=== PATIENT | female | born 1995 | race Caucasian/White ===

== ENCOUNTER 2017-10-21 08:16 | Emergency (ER) | payer SELFPAY ==
[2017-10-21] MEDS ORDERED: KETOROLAC TROMETHAMINE INJ/PF 30 MG/1 ML SDV IM ONE (09:17)
[2017-10-21] MEDS ORDERED: LIDOCAINE 2% VISCOUS SOLN 20 ML UDCUP PO ONE (09:17)
[2017-10-21] MEDS ORDERED: LIDOCAINE 1% INJ-PF (10 MG/ML) 30 ML SDV INJ ONE (09:18)
[2017-10-21] MEDS ORDERED: AZITHROMYCIN 250 MG TABLET PO ONE (09:18)
[2017-10-21] MEDS ORDERED: CEFTRIAXONE INJ 250 MG VIAL IM ONE (09:18)
--- NOTE | 2017-10-21 09:27 | ER Document Report ---
ED General - General Chief Complaint: Toothache Stated Complaint: TOOTHACHE Time Seen by Provider: 10/21/17 09:02 TRAVEL OUTSIDE OF THE [place] IN LAST 30 DAYS: No - HPI Notes: Patient is a 22-year-old female who presents to the ED complaining of acute on chronic right lower dental pain #32, right lower jaw swelling, temporal headache from her jaw pain per patient, white/clear vaginal discharge, urinary frequency. Patient states that her dental pain has been ongoing for the last couple days and her discharge over the last 1 day. Patient states that she is still able to eat and drink, but does have a decreased p.o. intake. She is having normal bowel movements. Patient states her lower back aches which makes her believe that she may have an infection. Denies any drug allergies. Has had chlamydia in the past. Last sexual intercourse was 2 days ago. Denies any headache, fever, neck pain/stiffness, URI, sore throat, chest pain, palpitations , syncope, cough, shortness of breath, wheeze, dyspnea, abdominal pain, nausea/ vomiting/diarrhea, urinary retention, dysuria, hematuria, vaginal bleeding, pelvic pain, loss of control of bowel or bladder, numbness/tingling, saddle anesthesia, muscle paralysis/weakness, or rash. - Related Data Allergies/Adverse Reactions: No Known Allergies Allergy (Verified 10/21/17 08:16) Past Medical History - Social History Smoking Status: Never Smoker Chew tobacco use (# tins/day): No Frequency of alcohol use: None Drug Abuse: None Family History: Reviewed & Not Pertinent Patient has suicidal ideation: No Patient has homicidal ideation: No Renal/ Medical History: Denies: Hx Peritoneal Dialysis - Immunizations Immunizations up to date: Yes Hx Diphtheria, Pertussis, Tetanus Vaccination: Yes - 11/2011 Review of Systems - Review of Systems -: Yes All other systems reviewed and negative Physical Exam - Vital signs Vitals: Temp Pulse Resp BP Pulse Ox 100.5 F H 120 H 14 147/87 H 98 10/21/17 08:27 10/21/17 08:27 10/21/17 08:27 10/21/17 08:27 10/21/17 08:27 - Notes Notes: PHYSICAL EXAMINATION: GENERAL: Well-appearing, well-nourished and in no acute distress. A&Ox4. answers questions appropriately. Vitals: HR 104 HEAD: Atraumatic, normocephalic. EYES: Pupils equal round and reactive to light, extraocular movements intact, sclera anicteric, conjunctiva are normal. ENT: EAC clear b/l. TM's intact b/l without erythema, fluid, or perforation. Nares patent and without discharge. oropharynx clear without exudates. No tonsilar hypertrophy or erythema. Moist mucous membranes. No sinus tenderness. Uvula midline. No palatine shift. No tongue protrusion. No respiratory compromise. Mouth: Poor dentition throughout. + severe decay and mild gingivitis. No obvious abscess or discharge noted. + rt lower jaw swelling. + tenderness to tooth #32. NECK: Normal range of motion, supple without lymphadenopathy. No rigidity/ meningismus. Kernig/brudzinski neg. LUNGS: Breath sounds clear to auscultation bilaterally and equal. No wheezes rales or rhonchi. HEART: Regular rate and rhythm without murmurs, rubs, gallops. Abd: Soft, non-tender, no distension. + bowel sounds present. No CVA tenderness. No pelvic tenderness on exam. : deferred, pt declined. NEUROLOGICAL: Cranial nerves grossly intact. Normal speech, normal gait. Normal sensory, motor exams PSYCH: Normal mood, normal affect. SKIN: Warm, Dry, normal turgor, no rashes or lesions noted. Course - Re-evaluation Re-evalutation: 10/21/17 10:25 Patient is a well-hydrated, 22-year-old female who presents to the ED with fever (currently afebrile) and dental pain, suspect infection. Vitals are acceptable w/o any significant tachycardia, tachypnea, or hypoxia. PE is otherwise unremarkable. Abd is soft and non-tender throughout. No I&D, labs, or imaging warranted at this time based on H&P. Viscous lidocaine dispensed today and toradol given. Wet mount, UA, HCG unremarkable. Chlam/erika pending. Zithromax and rocephin given today. Pt declined pelvic. I will send her home with a prescription for cleocin. No other labs or imaging warranted at this time based on H&P. Low suspicion for any meningitis, sepsis, peritonsillar/ pharyngeal abscess, respiratory compromise, Elijah's, temporal arteritis, acute appendicitis, bowel obstruction, acute cholecystitis, acute cholangitis, perforated diverticulitis, incarcerated hernia, pancreatitis, perforated ulcer, peritonitis, sepsis, pelvic inflammatory disease, ectopic , tubo- ovarian abscess, ovarian torsion, or other emergent systemic condition at this time. Patient is aware this condition can change from initial presentation and she needs to monitor symptoms closely. Conservative measures otherwise for symptoms. Call to schedule an appointment with a dentist for further evaluation and management. Recheck with your PCM/OBGYN this week as well. Return to the ED with any worsening/concerning symptoms otherwise as reviewed in discharge. Patient is in agreement. - Vital Signs Vital signs: Temp Pulse Resp BP Pulse Ox 98.7 F 96 16 125/75 80 L 10/21/17 10:12 10/21/17 10:12 10/21/17 08:48 10/21/17 10:12 10/21/17 10:12 Discharge - Discharge Clinical Impression: Pain, dental, Vaginal discharge Fever Qualifiers: Fever type: unspecified Qualified Code(s): R50.9 - Fever, unspecified Condition: Stable Disposition: HOME, SELF-CARE Instructions: Clindamycin ([facility]), Toothache ([facility]) Additional Instructions: [place] and floss twice daily Maintain fluid intake Take antibiotics as directed Mouthwash, salt water gargles, peroxide rinse as needed Tylenol/ibuprofen as needed Maintain fluid intake Proper hygenic technique Keep the skin clean Safe sexual practices with condoms everytime Check in with the health department this week for further testing if warranted Your chlamydia/Ghon test are pending and you will be notified if positive results; you may call in 1 day for the results as well Return immediately if symptoms worsen Recheck with PCM/OFFICE TECHNOLOGIST this week Call today/tomorrow and schedule an appointment with your dentist for further evaluation Return to the ED with any worsening symptoms and/or development of fever, headache, facial swelling, swelling of lips/tongue/throat, trouble swallowing, drooling, hoarseness, neck pain/stiffness, chest pain, palpitations, syncope, shortness of breath, trouble breathing, abdominal pain, n/v/d, numbness/tingling , or other worsening symptoms that are concerning to you. Prescriptions: Clindamycin HCl [Cleocin 300 mg Capsule] 300 mg PO TID #30 capsule Naproxen 500 mg PO BID PRN #30 tablet PRN Reason: Forms: Elevated Blood Pressure Referrals: TANO REYES MD [ACTIVE STAFF] - 10/23/17 [facility] [Provider Group] - Follow up in 3-5 days
[2017-10-21 09:56] LABS: APPEARANCE,URINE CLEAR; BILIRUBIN,URINE NEGATIVE (NEGATIVE); COLOR,URINE STRAW; GLUCOSE, URINE NEGATIVE (NEGATIVE); KETONES,URINE NEGATIVE (NEGATIVE); LEUKOCYTE ESTERASE,URINE NEGATIVE (NEGATIVE); NITRITE,URINE NEGATIVE (NEGATIVE); PROTEIN,URINE NEGATIVE (NEGATIVE); URINE SPECIFIC GRAVITY 1.004; UROBILINOGEN,URINE NEGATIVE mg/dL (<2.0)
[2017-10-21 10:01] LABS: BACTERIA (WET MOUNT) 3+ BACTERIA SEEN; T.VAGINALIS (WET MOUNT) NO TRICHOMONAS SEEN; WBCS (WET MOUNT) FEW WBCS SEEN; YEAST (WET MOUNT) NO YEAST SEEN
[2017-10-21] MEDS ORDERED: OXYCODONE HCL IR 5 MG TABLET PO ONE (10:35)
[2017-10-21] MEDS ORDERED: HYDROCODONE/ACETAMINOPHEN 5-325 MG (6 TAB/ER DISP) PO PRN (10:48)
[2017-10-21 11:05] VITALS: BP 118/73
[2017-10-21 11:33] LABS: CHLAM PCR NOT DETECTED (NOT DETECT); GON PCR NOT DETECTED (NOT DETECT)
== END 2017-10-21 11:00 | disposition home or self-care (01) ==
LOC: ER 08:16
DX: K08.9 Disorder of teeth and supporting structures, unspecified (principal); N89.8 Other specified noninflammatory disorders of vagina; R50.9 Fever, unspecified
CPT/HCPCS: 99283; 96372; 87086; 87210; 81025; 87088; 81001; 87186; 87491; 87591; J3490 ×2; J1885; J0696